=== PATIENT | female | born 1945 | race Caucasian/White ===

== ENCOUNTER 2022-01-17 09:47 | Day surgery (SDC) | payer MEDICARE, OTHER, SELFPAY ==
[2022-01-06 08:13] VITALS: BMI 20.5
[2022-01-17] VITALS (12 sets, daily range): BP systolic 109–173; BP diastolic 64–95; PULSE 67–91; RESP 16–20; TEMP 36.3–36.9; O2SAT 92–100; BMI 20.5; BMI 23.8
--- NOTE | 2022-01-17 | DI.RAD.S_ITS ---
PROCEDURE: XR HIP W PEL IF DONE RT 2V INDICATIONS: RT HIP TECHNIQUE: AP pelvis with lateral view(s) of the right hip(s). COMPARISON: [facility] [place], CR, XR PELVIS WITH LATERAL HIP RIGHT, 12/19/2021, 10:43. [facility], CR, XR HIP W PEL IF DONE RT 2V, 01/17/2022, 16:58. FINDINGS: Bones: The right total arthroplasty is unchanged. No periprosthetic lucency to suggest loosening or infection. No fractures or dislocations. Pelvic ring appears intact. No suspicious bony lesions. Mild to moderate left hip DJD. Soft tissues: The visualized bowel gas pattern is normal. No suspicious soft tissue calcifications. IMPRESSION: Expected appearance of the right total hip arthroplasty. Dictated by: Westley Ruiz M.D. on 01/17/2022 at 20:47 Approved by: Westley Ruiz M.D. on 01/17/2022 at 20:50
--- NOTE | 2022-01-17 06:00 | DI.RAD.S_ITS ---
PROCEDURE: XR HIP W PEL IF DONE RT 2V INDICATIONS: prosthesis placement TECHNIQUE: 4 intraoperative images of the right hip. COMPARISON: [facility], CR, XR HIP W PEL IF DONE RT 2V, 01/17/2022, 17:36. [facility] [place], [place], XR PELVIS WITH LATERAL HIP RIGHT, 12/19/2021, 10:43. FINDINGS: Right total hip arthroplasty projects in the expected location. IMPRESSION: Right hip arthroplasty projects in the expected location. Dictated by: Westley Ruiz M.D. on 01/17/2022 at 20:50 Approved by: Westley Ruiz M.D. on 01/17/2022 at 20:51
[2022-01-17] MEDS: CELECOXIB 200 MG CAPSULE PO (11:41)
[2022-01-17] MEDS: PREGABALIN 75 MG CAPSULE PO (11:41)
[2022-01-17] MEDS: LACTATED RINGERS 1,000 ML 100 ML IV ×2 (11:44→15:46)
[2022-01-17] MEDS: VANCOMYCIN 1,000 MG/200 ML PIGGYBACK 200 MG IV (13:50)
--- NOTE | 2022-01-17 14:28 | PM.PREOP ---
Pre-operative Note COVID-19 COVID-19 status: Negative Interval Note History & Physical reviewed/Exam performed by Physician: Yes Changes to H&P: No
--- NOTE | 2022-01-17 14:29 | P.OP_ITS ---
Operative Date/Time/Diagnoses Date of procedure: 01/17/22 Time of procedure: 14:45 Pre-op diagnosis: right hip OA, AVN hip Post-op diagnosis: same Procedure & Clinicians Procedure: Right total hip arthroplasty anterior approach Same procedure as scheduled: Yes Indications: The patient has had progressively worsening right hip pain with radiographic changes consistent with arthritis. Non-operative management has failed and the patient has requested total hip replacement. The risks, benefits and alternatives to surgery were discussed with the patient prior to proceeding. Risks discussed included, but were not limited to, failure to relieve pain, leg length discrepancy, dislocation, stiffness, infection, nerve damage, deep venous thrombosis, pulmonary embolism, stroke, coma, heart attack, permanent paralysis and , as well as the potential need for eventual revision of the prosthetic. Surgeon: Layne Felix Pensionholder Information Clerk: Debbie Gomes Anesthesia Type: General and Spinal Operative Notes Findings: Severe right hip osteoarthritis, soft bone, adequate stability Closure Type: primary Specimen(s): none sent Prosthetic devices, grafts, tissues, transplants, or devices: Felix and nephew anthology standard offset size 6, R3 46, -3 by 28mm oxinium, neutral liner, two 6.5mm screws Estimated Blood Loss (mL): 250 Blood products transfused: none Procedure in detail: The patient was brought to the operating room. Patient was carefully positioned in the supine position. Time-out was performed and antibiotics were given. Anesthesia was induced. She was positioned in the on the table in order to allow hyperextension of the hip. The right lower extremity was prepped and draped in a standard sterile fashion. An anterior right hip incision was made 1 fingerbreadth lateral to the anterior superior iliac spine and extended distally towards the greater trochanter. Dissection was carried out through skin and subcutaneous tissues. Superficial hemostasis was achieved. The fascia over the tensor fascia damaris was defined and incised with a knife. Two Allis clamps were used to grasp the fascia. Tensor fascia damaris was retracted laterally. A gelpi retractor was placed. Dissection was carried out down along the neck. The circumflex vessels were carefully identified and cauterized with the Aqua Mantis. There was good visualization of the femoral neck. A Cobra was placed superior to the neck and the gluteus fibers were carefully stripped from that superior aspect of the capsule. A 2nd retractor was placed along the inferior aspect of the neck. The rectus insertion along the capsule was partially released. A 3rd retractor that was then gently placed over the rim of the acetabulum under the rectus. Capsule was carefully incised and released from the intertrochanteric line circumferentially superior to the mid sagittal line and inferiorly to the mid sagittal line until the lesser trochanter was palpable. A tag stitch was placed both in the superior and inferior limb of the capsular insertion. Along the acetabulum capsule was also released up to the mid sagittal 12:00 position. A portion of the labrum was resected. A saw was used to perform an osteotomy at the level of the intertrochanteric line and the junction of the superior femoral neck leaving approximately 1 finger breath of residual inferior neck above the lesser trochanter. A 2nd cut was made along the femoral neck at the base of the head and a napkin ring of neck was removed. Corkscrew was placed in the femoral head and the head was removed without difficulty. Retractors were then repositioned around the a cetabulum. Residual labrum was resected and additional osteophytes were removed. A reamer that was 4 mm below the templated size was placed by hand in the acetabulum and it was reamed to centralize the acetabulum. It was then reamed up to 2 under the templated size and fluoroscopy was brought in to confirm the position of the reaming and depth of reaming. I reamed 1 under the anticipated size. A trial cup was placed and noted that it was appropriately sized and fluoroscopy confirmed position and depth. The component was open and inserted without difficulty fluoroscopic imaging was used to confirm that the cup had been adequately seated and was well positioned. It was further stabilized with two screws. Neutral poly liner was placed. The cup was tested and noted to be stable. Attention was then directed to the femur. The femur was gently hyperextended additional capsular release was performed as needed in order to allow adequate visualization of the proximal femur with elevation of the femur. Patient was placed in a hyperextended slightly adducted position with maximum external rotation. Box osteotome was used to check for any residual neck as well as sclerotic bone along the trochanter. [place] pepper was placed in the femur. Additional broaching was performed. Canal finder was used to determine the alignment of the canal and position. Size 1 broach was placed. The canal was then appropriately broached up to the templated size as long as there was adequate stability of the broach and serial advancement of the broach without excessive impingement. Specific attention was directed at avoiding varus attempting to direct the distal aspect of the broach more anteriorly and avoiding excessive anteversion. Trial reduction showed acceptable range of motion, good stability, no posterior impingement, confucianist of leg length and appropriate lateral shuck. I also hyperflexed the hip and checked that there was no impingement anteriorly and there was good stability with flexion, adduction and internal rotation. Marcaine and Exparel were injected. The stem was placed without difficulty. Repeat trial reduction and x-ray showed acceptable overall position, length, and no evidence of the femoral fracture. Final head was placed. Wound was meticulously irrigated with normal saline. The hip was reduced and additional Exparel and Marcaine were injected. The capsule was closed with interrupted nonabsorbable sutures. The fascia of the tensor was closed with interrupted and running Vicryl. No drain was placed. Any tensor fascia damaris muscle that appeared to be contused or injured which was a minimal amount was carefully resected. Capsule around the tensor was injected with Exparel and Marcaine. The skin was closed with barbed stitches for the subcutaneous tissue and skin. We also used surgical glue. The wound was dressed sterilely. Brief Betadine soak was also used and was meticulously irrigated with normal saline. Patient was transferred to recovery room in satisfactory condition. Complications: none Post-operative Condition: stable Disposition: Acute Care Plan for aftercare: The patient will be maintained on a standard total hip replacement protocol with weight bearing as tolerated and anterior hip precautions. The patient will receive Aspirin and sequential compression devices for DVT prophylaxis. The patient will be discharged home when safe for the home environment.
[2022-01-17] MEDS: CEFAZOLIN 2 GM/100 ML PREMIX 100 ML IV (14:57)
[2022-01-17] MEDS: TRANEXAMIC ACID 1,000 MG VIAL 1000 MG INJ ×2 (15:25→17:01)
--- NOTE | 2022-01-17 15:38 | SUR.OPER ---
Supine on padded [place] table with bilateral legs secured in padded positioning boots and suspended in positioning spars, operative leg in traction per surgeon. Head on one pillow. Arm on non-operative side secured on padded armboard <90 degrees abduction. Arm on operative side padded and resting across chest then secured with tape over sheet. Padded perineal post in place per surgeon.
[2022-01-17] MEDS: BUPIVACAINE LIPOSOME 266 MG/20 ML VIAL INJ (15:47)
[2022-01-17] MEDS: BUPIVACAINE 0.25% (PF) 60 ML, EPINEPHrine 0.3 MG INJ (15:47)
[2022-01-17] MEDS: ACETAMINOPHEN 1,000 MG/100 ML IV (16:39)
[2022-01-17] MEDS: ONDANSETRON 4 MG/2 ML INJ IV (17:52)
--- NOTE | 2022-01-17 18:27 | SUR.PHASEI ---
Patient transfered to room 222 in bed by this RN with own belongings bag, walker and 1 hospital bag and glasses on. Pt bed in low position, call light in reach. Updated SBAR at bedside to Rosa Humphreys.
[2022-01-17] MEDS: LACTATED RINGERS 1,000 ML 120 ML IV (19:12)
[2022-01-17] MEDS: ACETAMINOPHEN 325 MG TABLET 650 MG PO (20:15)
[2022-01-17] MEDS: IBUPROFEN 400 MG TABLET PO (20:15)
[2022-01-17] MEDS: VIT C/E/ZN/COPPR/LUTEIN/ZEAXAN CAPSULE 1 CAP PO (20:16)
[2022-01-17] MEDS: ASPIRIN EC 81 MG TABLET PO (20:16)
[2022-01-17] MEDS: lisinopriL 5 MG TABLET PO (20:16)
[2022-01-17] MEDS: ATORVASTATIN 20 MG TABLET 40 MG PO (20:16)
[2022-01-17] MEDS: DOCUSATE 100 MG CAPSULE PO (20:16)
[2022-01-18] VITALS: BP 114/63; PULSE 79; RESP 19; TEMP 36.7; O2SAT 98
[2022-01-18] MEDS: ACETAMINOPHEN 325 MG TABLET 650 MG PO ×3 (00:05→11:28)
[2022-01-18] MEDS: IBUPROFEN 400 MG TABLET PO ×3 (00:06→11:28)
[2022-01-18] MEDS: CEFAZOLIN 2 GM/100 ML PREMIX 100 ML IV ×2 (00:06→06:13)
[2022-01-18] MEDS: LACTATED RINGERS 1,000 ML 125 ML IV (03:03)
[2022-01-18 04:00] VITALS: BP 122/64; PULSE 84; RESP 19; TEMP 36.3; O2SAT 97
[2022-01-18 06:57] LABS: Hemoglobin 12.2 g/dL (12.0-16.0)
[2022-01-18 08:10] VITALS: BP 135/77; PULSE 73; RESP 16; TEMP 36.4; O2SAT 98
[2022-01-18] MEDS: ASPIRIN EC 81 MG TABLET PO (08:33)
[2022-01-18] MEDS: DOCUSATE 100 MG CAPSULE PO (08:33)
[2022-01-18] MEDS: VIT C/E/ZN/COPPR/LUTEIN/ZEAXAN CAPSULE 1 CAP PO (08:33)
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
--- NOTE | 2022-01-18 10:48 | CM.DANOTE ---
DCP: Case received, EMR reviewed and met with patient. Friend, was also at bedside. Introduced self and role. Was able to obtain information regarding patient's baseline activity level prior to her surgery. DCP assessment completed with information currently available. Patient is a 76 year old female who admitted yesterday morning to the care of the orthopedic team. PCP: Dr. Beasley. Payer: confirmed: Medicare/. Patient came to the hospital via private vehicle for a surgical procedure. She had right total hip arthroplasty, anterior approach. Patient has history of right hip osteoarthritis. Met with patient in her room. Patient was sitting up in bed.She is alert and oriented, friend at bedside. Confirmed that she resides in [place] with spouse, Cheo. At her baseline, she rarely drives anymore. She has a cane, but does not always use. Confirmed that her spouse will assist her when she goes home. She is hoping for a ferry voucher as soon as possible if she is discharged today. Patient will be working with P.T. P: DCP to continue to follow. Plan is home when stable and cleared by P.T. Katlyn Davis RN/Coder Discharge Planning/Care Management CM Discharge Assessment Start: 01/18/22 10:45 Freq: Status: Active Protocol: Document 01/18/22 10:45 (Rec: 01/18/22 10:48 [id number]) Discharge Planning Assessment Assigned Developing Machine Tender Katlyn Davis RN/Coder Advance Directives? Yes Advance Directives on File No History Provided By Patient,Medical Record Prior Living Arrangements House Household Members spouse Type of transporation used prior to Relies on Others admit Independent with ADL's Yes Is patient alert and oriented? Yes DME Already Rented / Owned Cane Patient/Family Preference OP PT Therapy Barriers to Discharge No Discharge Plan Home Transportation Arrangement Friend or spouse Referrals Initiated None needed Whiteboard Updated in Patient Room with Yes name and ext. # of Developing Machine Tender Review Status In Process Next Review Type Continued Stay Review Pre-Anesthesia Assessment Start: 01/06/22 08:13 Freq: Status: Complete Protocol: Document 01/06/22 08:13 CAB (Rec: 01/06/22 09:43 CAB [id number]) Pre-Anesthesia Assessment Preferred Name Dori Patient Information Reviewed Via Phone Assessment Assessment Completed With Patient Diagnostic Results BMP/CMP,CBC,EKG Comment Outside labs/ECG scanned, COVID screen @ [facility] Primary Care Provider Bhaskar Beasley Seen Specialist in Last 12 Months Yes Specialist Seen Orthopedist,Stemmer Machine Primary Language Syrian [employer] Service Employee Required No Height 4 ft 10.5 in Weight 100 lb Body Mass Index (BMI) 20.5 Hearing Ability Normal Visual Assist Glasses Dentition Type Teeth, Natural Present Barriers to Learning Auditory Hx Anesthesia Reactions No: I tend to be very sensitive to medications Hx Family Anesthesia Reaction No Hx Malignant Hyperthermia No Hx Blood Transfusions No Anesthesia Review Requested No Cuff Runner No alcohol intake never Smoking Status Former smoker how long ago did patient quit smoking Quit 1992 Substance Use Type marijuana Comment Advised not to smoke marijuana 24 hours prior to surgery Pain Present Pain Reported Musculoskeletal Symptoms Abnormal Gait,Back Pain, Difficulty Walking,Joint Pain History of Falling (Recent or History of No ) Patient is completely paralyzed or No completely immobile Comment Balance issues r/t CVA 20 Is patient on oxygen? No Does patient have CLARKE/SOB No Hx Sleep Apnea No Currently Taking a Beta Anisa No Hx Chest Pain No Hx SOB No Hx Syncope or Dizziness Yes: Occasional dizziness r/t ataxia Anti-Coagulant Therapy Yes: ASA 81mg r/t CVA'20 Has a Honing Machine Operator No Cardiac Testing No Hx Pacemaker/ICD No Pacemaker Rep Required? No Diet Type At Home Ketogenic dysphagia No Urinary Catheter Present No Hx Urinary Self Catheterization No Diabetes No Patient No Lactating No Hx Drug Resistant Organism No Presence of External or Internal Medical Yes: Left knee prostheisis Devices Have you had any close contact with No someone diagnosed with COVID-19? Received a COVID vaccine? Yes Received all doses? Yes Marital Status Lives With spouse Prior Living Arrangements House Number of Floors (Floors) Two Floors Support System Spouse Does the Patient Have Assistance After Yes Surgery Patient Discharge Plan Description Return Home Comment Pt advised overnight length of stay per surgeon Feels Safe in Current Environment Yes Been Physically Hurt or Threatened By a No Person in Current Environment Do you have thoughts of harming yourself None or others? Are you currently considering suicide? No Do you have a plan to hurt yourself or No Plan others? Do You Have Any Spiritual Beliefs That No May Affect Your HC Choices? Do You Have Any Cultural Practices That No May Affect Your HC Choices? Who Can We Speak to About Patient's Care Family, friends Identifying Code for Release of Patient Declines to issue Information Health Care Proxy/Next of Kin Cornel (pronouced Solo)- Health Care Proxy Emergency Contact Name Michele Arevalo (friend) Emergency Contact cell: [phone] Advance Directives? Yes Advance Directives on File No Requested Patient Bring Advanced Yes Directives DOS Power of Supervisor Stave Cutting No PAC Instructions Do not shave/clip surgical site,Durable medical equipment ,Medications to take/avoid, Nasal antibiotic,No ETOH/ petroleum product on skin DOS, NPO,Post-op transportation,Pre -surgical wash,Sensory aids, Sturdy shoes/comfortable clothes,Do not bring valuables and remove jewelry
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
== END 2022-01-18 12:47 | disposition home or self-care (01) ==
LOC: OR 09:51 → AC 09:51
PROVIDERS: Family Provider Specialist; PCP Student in an Organized Health Care Education/Training Program; Referring Provider Orthopaedic Surgery; Visit Provider Orthopaedic Surgery
PROC: (CPT 27130; principal; 2022-01-17 13:30)
DX: M16.11 Unilateral primary osteoarthritis, right hip (principal); M87.9 Osteonecrosis, unspecified; Z86.73 Personal history of transient ischemic attack (TIA), and cerebral infarction without residual deficits; E78.5 Hyperlipidemia, unspecified; I10 Essential (primary) hypertension
CPT/HCPCS: 27130; 36415; 73502; 76000; 85014; 85018; 97116; 97161; 97530; C1776; C9290; J0131; J0171; J0690; J2405; J2704; J3010